=== PATIENT | female | born 1985 | race Caucasian/White ===

== ENCOUNTER 2017-05-03 07:16 | Inpatient (IN) | payer OTHER ==
[2017-05-03 08:57] LABS: HEMATOCRIT 31.8 % (36.0-47.0); HEMOGLOBIN 10.5 g/dl (12.0-16.0); MEAN CORPUSCULAR HEMOGLOBIN 26.7 pg (27.0-33.0); MEAN CORPUSCULAR VOLUME 80.9 fl (80.0-96.0); PLATELET COUNT, AUTOMATED 242 10^3/uL (150-450); RED BLOOD COUNT 3.93 10^6/uL (4.00-5.40); RED CELL DISTRIBUTION WIDTH 14.5 % (11.5-14.5); WHITE BLOOD COUNT 8.2 10^3/uL (4.0-10.0)
[2017-05-03] MEDS: LR 1,000 ML IV ×5 (09:26→19:56)
[2017-05-03] MEDS ORDERED: PHENYLephrine HCL 500 MCG/5 ML (100MCG/ML) SYRINGE (J2370) As Ordered (10:07)
[2017-05-03] MEDS ORDERED: MORPHINE PRES-FREE INJ 10 MG/10 ML VIAL (J2274) As Ordered (10:07)
[2017-05-03] MEDS ORDERED: OXYTOCIN INJ 10 UNITS/ML VIAL (J2590) As Ordered (10:07)
[2017-05-03] MEDS ORDERED: ePHEDrine SULFATE 25 MG/5 ML(5MG/ML) SYRINGE As Ordered (10:07)
[2017-05-03] MEDS ORDERED: ONDANSETRON 4MG/2ML VIAL (J2405) As Ordered (10:07)
[2017-05-03] MEDS: BICITRA 30ML SOLN UDC PO (10:20)
[2017-05-03] MEDS ORDERED: PERCOCET 5MG/325MG TAB PO ×2 (12:00→12:15)
[2017-05-03] MEDS ORDERED: RHOGAM 300 MCG (1500 IU) INJ (J2790) IM (12:00)
[2017-05-03] MEDS ORDERED: METOCLOPRAMIDE INJ 10MG/2ML VIAL (J2765) IV (12:15)
[2017-05-03] MEDS ORDERED: ONDANSETRON 4MG/2ML VIAL (J2405) IV (12:15)
[2017-05-03] MEDS ORDERED: KETOROLAC 30 MG/ML VIAL (J1885) IV (12:15)
[2017-05-03] MEDS ORDERED: fentaNYL 100 MCG/2 ML INJECTION (J3010) IV (12:15)
[2017-05-03] MEDS ORDERED: MEPERIDINE INJ 25 MG/ML VIAL (J2175) IV (12:15)
[2017-05-03] MEDS: PERCOCET 5MG/325MG TAB PO (15:49)
[2017-05-03] MEDS: LR 500 ML IV (17:15)
[2017-05-03] MEDS: KETOROLAC 30 MG/ML VIAL (J1885) IV (18:45)
[2017-05-03] MEDS: DOCUSATE SODIUM 100 MG CAP PO (21:00)
[2017-05-04] MEDS: LR 1,000 ML IV ×3 (01:29→21:05)
[2017-05-04] MEDS: KETOROLAC 30 MG/ML VIAL (J1885) IV ×3 (01:30→13:00)
[2017-05-04 07:06] LABS: HEMATOCRIT 29.5 % (36.0-47.0); HEMOGLOBIN 9.6 g/dl (12.0-16.0); MEAN CORPUSCULAR HEMOGLOBIN 26.3 pg (27.0-33.0); MEAN CORPUSCULAR HGB CONC 32.5 g/dl (32.0-36.5); MEAN CORPUSCULAR VOLUME 80.8 fl (80.0-96.0); PLATELET COUNT, AUTOMATED 208 10^3/uL (150-450); RED BLOOD COUNT 3.65 10^6/uL (4.00-5.40); RED CELL DISTRIBUTION WIDTH 14.6 % (11.5-14.5); WHITE BLOOD COUNT 9.2 10^3/uL (4.0-10.0)
[2017-05-04] MEDS: PRENATAL VITAMINS CHEWABLE TABLET PO (08:47)
[2017-05-04] MEDS: DOCUSATE SODIUM 100 MG CAP PO ×2 (08:47→20:01)
[2017-05-04] MEDS: PERCOCET 5MG/325MG TAB PO ×3 (08:48→20:01)
[2017-05-04] MEDS: IBUPROFEN 800 MG TAB PO (20:02)
[2017-05-05] MEDS: LR 1,000 ML IV (01:56)
[2017-05-05] MEDS: IBUPROFEN 800 MG TAB PO (05:40)
[2017-05-05] MEDS: PRENATAL VITAMINS CHEWABLE TABLET PO (08:48)
[2017-05-05] MEDS: DOCUSATE SODIUM 100 MG CAP PO (08:48)
[2017-05-05] MEDS: PERCOCET 5MG/325MG TAB PO (08:48)
[2017-05-05] MEDS: MEASLES,MUMPS,RUBELLA VACCINE INJ (MMR-II) (90707) SC (10:31)
== END 2017-05-05 11:50 | disposition home or self-care (01) | DRG 766 ==
LOC: M LDI 07:16 → M OBS 13:14
PROVIDERS: Obstetrics & Gynecology
PROC: 10D00Z1 Extraction of Products of Conception, Low, Open Approach (ICD-10-PCS; principal; 2017-05-03 10:28)
PROC: 0UB70ZZ Excision of Bilateral Fallopian Tubes, Open Approach (ICD-10-PCS; 2017-05-03 10:28)
DX: O34.211 Maternal care for low transverse scar from previous cesarean delivery (principal); Z3A.39 39 weeks gestation of pregnancy; O99.344 Other mental disorders complicating childbirth; F41.9 Anxiety disorder, unspecified; Z37.0 Single live birth; Z30.2 Encounter for sterilization